=== PATIENT | female | born 1985 | race Hispanic/Latino ===

== ENCOUNTER 2017-09-26 17:16 | Emergency (ER) | payer SELFPAY ==
[2017-09-26 17:38] LABS: APPEARANCE,URINE Clear (CLEAR); BILIRUBIN,URINE Negative (NEGATIVE); COLOR,URINE Yellow (YELLOW); GLUCOSE, URINE (UA) Negative (NEGATIVE); HCG,QUAL RESULT NEGATIVE (NEGATIVE); KETONES,URINE Negative (NEGATIVE); LEUKOCYTE ESTERASE ,URINE Negative (NEGATIVE); NITRATE,URINE Negative (NEGATIVE); OCCULT BLOOD,URINE Negative (NEGATIVE); PH,URINE 6.5 (5.0-8.0); PROTEIN,URINE Negative (NEGATIVE); UROBILINOGEN,URINE 0.2 mg/dL (0.2-1.0)
[2017-09-26 18:45] LABS: BASOPHILS % (AUTO) 0.5 % (0.0-5.0); EOSINOPHILS % (AUTO) 5.1 % (0.0-8.0); HEMATOCRIT 41.3 % (36-48); LYMPHOCYTES % (AUTO) 31.1 % (21.0-51.0); MEAN CORPUSCULAR HGB CONC 36.1 g/dL (32.0-36.0); MEAN CORPUSCULAR VOLUME 83.2 fL (79-99); NEUTROPHILS % (AUTO) 55.3 % (40.0-77.0); PLATELET COUNT (AUTO) 220 K/uL (130-400); RED BLOOD CELL COUNT(AUTO) 4.97 MIL/uL (4.00-5.50); RED CELL DISTRIBUTION WIDTH 13.8 % (11.0-15.5)
[2017-09-26] MEDS ORDERED: DICYCLOMINE HCL 10 MG/ML 2ML AMP IM ONE (18:50)
[2017-09-26 18:57] LABS: CREATININE 0.9 mg/dL (0.5-1.5); POTASSIUM 3.7 mmol/L (3.5-5.1)
[2017-09-26 20:05] LABS: AMPHET/METH SCREEN,URINE POSITIVE (NEGATIVE); BARBITURATE SCREEN, URINE NEGATIVE (NEGATIVE); BENZODIAZEPINES SCREEN,URINE NEGATIVE (NEGATIVE); CANNABINOID SCREEN,URINE NEGATIVE (NEGATIVE); COCAINE SCREEN,URINE NEGATIVE (NEGATIVE); OPIATE SCREEN,URINE NEGATIVE (NEGATIVE); PHENCYCLIDINE SCREEN,URINE NEGATIVE (NEGATIVE)
== END 2017-09-26 23:20 | disposition home or self-care (01) ==
LOC: EDH 17:16
DX: R10.12 Left upper quadrant pain (principal); Z72.0 Tobacco use; Z88.6 Allergy status to analgesic agent; Z88.1 Allergy status to other antibiotic agents
CPT/HCPCS: 36415; 74018; 80048; 80305; 81003; 81025; 85025; 96372; 99285; J0500

== ENCOUNTER 2018-08-31 17:28 | Emergency (ER) | payer SELFPAY | END 2018-08-31 19:52 | disposition home or self-care (01) | LOC: EDH 17:28 | DX: R07.89 Other chest pain (principal); Z88.6 Allergy status to analgesic agent; Z98.51 Tubal ligation status | CPT/HCPCS: 71045; 93005 ==

== ENCOUNTER 2022-12-31 23:15 | Emergency (ER) | payer OTHER ==
[2023-01-01 00:05] LABS: APPEARANCE,URINE CLEAR (CLEAR); BILIRUBIN,URINE NEGATIVE (NEGATIVE); COLOR,URINE COLORLESS (YELLOW); GLUCOSE, URINE (UA) NEGATIVE (NEGATIVE); KETONES,URINE 5 mg/dL (NEGATIVE); LEUKOCYTE ESTERASE ,URINE NEGATIVE Leu/uL (NEGATIVE); NITRATE,URINE NEGATIVE (NEGATIVE); OCCULT BLOOD,URINE NEGATIVE (NEGATIVE); PROTEIN,URINE NEGATIVE (NEGATIVE); UROBILINOGEN,URINE 0.2 mg/dL (0.2-1.0)
[2023-01-01 00:07] LABS: SQUAMOUS EPITHELIAL CELL,UR RARE /HPF (0-2); WBC,URINE 0-1 /HPF (0-1)
[2023-01-01] MEDS ORDERED: ORPHENADRINE CITRATE 30 MG/ML ML ONE (01:55)
[2023-01-01] MEDS ORDERED: KETOROLAC 15MG/ML VIAL (15MG/ML) ONE (01:55)
[2023-01-01] MEDS ORDERED: KETOROLAC 15MG/ML VIAL (15MG/ML) IM ONE (02:00)
[2023-01-01] MEDS ORDERED: ORPHENADRINE CITRATE 30 MG/ML ML IM ONE (02:00)
[2023-01-01] MEDS ORDERED: NAPR-1192 PO (06:11)
[2023-01-01] MEDS ORDERED: ORPH100T4 PO (06:11)
[2023-01-01 06:25] VITALS: BP 126/76
== END 2023-01-01 06:27 | disposition home or self-care (01) ==
LOC: EDH 23:15
DX: M54.50 Low back pain, unspecified (principal); J45.909 Unspecified asthma, uncomplicated; Z88.8 Allergy status to other drugs, medicaments and biological substances
CPT/HCPCS: 99285; 81001; 81025; 72131; 96372 ×2; J1885

== ENCOUNTER 2024-05-02 19:48 | Emergency (ER) | payer SELFPAY ==
[~2024-05-02] VITALS: Ht 162.6 cm; Wt 85.7 kg
[~2024-05-02 19:48] MED LIST: NAPR-1192 PO; ORPH100T4 PO
[2024-05-02 19:50] VITALS: BP 124/83; PULSE 62; RESP 18; TEMP 97.6
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
[2024-05-02] MEDS ORDERED: acetaMINOPHEN 500 MG TABLET PO ONE (20:00)
== END 2024-05-02 22:29 | disposition left against medical advice (07) ==
LOC: EDH 19:48
DX: S00.83XA Contusion of other part of head, initial encounter (principal); Z88.5 Allergy status to narcotic agent; Z90.49 Acquired absence of other specified parts of digestive tract; W21.03XA Struck by baseball, initial encounter; Y93.89 Activity, other specified; Y92.89 Other specified places as the place of occurrence of the external cause; Y99.8 Other external cause status
CPT/HCPCS: 99282